=== PATIENT | male | born 1965 | race Caucasian/White ===

== ENCOUNTER → 2021-01-27 | Outpatient (CLI) | payer BC ==
--- NOTE | 2021-01-28 09:07 | RAD ---
EXAM: XR FOOT_LEFT 3 VIEWS 01/27/2021 2:47 PM CLINICAL INDICATION: Foot pain right second digit COMPARISON: None TECHNIQUE: 3 views of the right FINDINGS: No acute fracture. Alignment is normal. Joint spaces are maintained. There is an os perone um. Mild degenerative changes of the midfoot with small dorsal osteophytes. No soft tissue abnormalit y. IMPRESSION: No acute osseous abnormality. Electronically signed by: Keyanna Sexton MD (01/28/2021 9:05 AM) [id number]
== END ==
LOC: RAD 14:39
PROVIDERS: ATTEND Specialist
DX: M19.072 Primary osteoarthritis, left ankle and foot (principal); M25.775 Osteophyte, left foot
CPT/HCPCS: 73630